=== PATIENT | male | born 1995 | race Two or more races ===

== ENCOUNTER → 2024-09-12 | Outpatient (CLI) | payer OTHER, SELFPAY ==
--- NOTE | 2024-09-12 13:01 | XR_ITS ---
Examination: Fingers, left fifth digit 3 views Technique: AP, oblique, lateral views left fifth digit 3 views. Exam date and time: September 12, 2024 1419 hours INDICATIONS: Injury to fifth digit today, pain. FINDINGS: Acute oblique fractures through the mid and distal portion middle phalanx fifth digit No significant displacement No dislocation IMPRESSION: Fractures middle phalanx fifth digit
== END | disposition home or self-care (01) ==
PROVIDERS: PCP Family Medicine; Referring Provider Family Medicine; Visit Provider Family Medicine
DX: S62.627A Displaced fracture of middle phalanx of left little finger, initial encounter for closed fracture (principal); X58.XXXA Exposure to other specified factors, initial encounter
CPT/HCPCS: 73140